=== PATIENT | male | born 1945 | race Caucasian/White ===

== ENCOUNTER 2017-08-03 08:30 | Day surgery (SDC) | payer MEDICARE ==
[~2017-08-03] VITALS: Ht 170.2 cm; Wt 94.3 kg
[~2017-08-03 08:30] MED LIST: METF-372 PO; PANT40TA2 PO; SERT-274 PO; SIMV-8 PO; SUCR1TAB PO; TELM80TA PO; TRAM50TA2 PO
[2017-08-03] MEDS ORDERED: LIDOCAINE 2%HCL (LOCAL ANESTH.) INJ 20ML MDV ONE (11:08)
[2017-08-03] MEDS ORDERED: fentaNYL CITRATE 100 MCG/2 ML VL ONE (11:31)
[2017-08-03] MEDS ORDERED: MIDAZOLAM HCL 1MG/1ML-2 ML VIAL ONE (11:32)
== END 2017-08-03 16:15 | disposition home or self-care (01) ==
LOC: CATH 08:30
PROVIDERS: ATTEND Specialist
DX: I48.91 Unspecified atrial fibrillation (principal); E66.9 Obesity, unspecified; Z68.32 Body mass index [BMI] 32.0-32.9, adult; I10 Essential (primary) hypertension; E78.5 Hyperlipidemia, unspecified; E11.9 Type 2 diabetes mellitus without complications; F41.9 Anxiety disorder, unspecified
CPT/HCPCS: 93005; 93619; 93623; C1730; C1894; J1644; J2250; J3010; J7030; 99152